=== PATIENT | male | born 1965 | race Caucasian/White ===

== ENCOUNTER 2020-07-07 04:36 | Day surgery (SDC) | payer OTHER ==
[2020-07-02 12:57] VITALS: BMI 29.7
[2020-07-07] MEDS ORDERED: MIDAZOLAM HCL 2 MG/2 ML SINGLE DOSE VIAL ONE ×2 (12:17)
[2020-07-07] MEDS ORDERED: oxyCODONE HCL 5 MG TABLET PO PRN ×2 (12:48→13:40)
[2020-07-07] MEDS ORDERED: ONDANSETRON 4 MG/2 ML VIAL IVPUSH PRN ×2 (12:48→13:40)
[2020-07-07] MEDS ORDERED: PROPOFOL 20 ML ONE ×3 (12:55→14:23)
[2020-07-07] MEDS ORDERED: LACTATED RINGERS SOLUTION 1,000 ML IV SCH (13:00)
[2020-07-07] MEDS ORDERED: ceFAZolin SODIUM 1 GM VIAL ONE (13:23)
[2020-07-07] MEDS ORDERED: DEXAMETHASONE SOD PHOSPHATE 4 MG/1 ML VIAL ONE (13:23)
[2020-07-07] MEDS ORDERED: PROMETHAZINE HCL 25 MG/1 ML VIAL IVPUSH PRN (13:40)
[2020-07-07 16:08] VITALS: TEMP 96.6
[2020-07-07 16:36] VITALS: BP 149/88; PULSE 97
== END 2020-07-07 16:40 | disposition home or self-care (01) ==
LOC: JASU-SURG 04:36
PROVIDERS: ATTEND Orthopaedic Surgery
PROC: 0LU14JZ Supplement Right Shoulder Tendon with Synthetic Substitute, Percutaneous Endoscopic Approach (ICD-10-PCS; 2020-07-07)
PROC: 0RNJ4ZZ Release Right Shoulder Joint, Percutaneous Endoscopic Approach (ICD-10-PCS; principal; 2020-07-07 13:30)
PROC: 0LQ14ZZ Repair Right Shoulder Tendon, Percutaneous Endoscopic Approach (ICD-10-PCS; 2020-07-07 13:30)
DX: M75.101 Unspecified rotator cuff tear or rupture of right shoulder, not specified as traumatic (principal)
CPT/HCPCS: 82962; 88304-TC; 94760